=== PATIENT | female | born 1955 | race Caucasian/White ===

== ENCOUNTER 2016-12-12 19:31 | Emergency (ER) | payer MEDICAID ==
[~2016-12-12] VITALS: Ht 160 cm; Wt 55.0 kg
[~2016-12-12 19:31] MED LIST: ASPI-867 PO; ATOR20TA PO; METF10002 PO
[2016-12-13] MEDS ORDERED: ACETAMINOPHEN 500MG TABLET PO ONE (00:15)
[2016-12-13 01:07] VITALS: BP 132/67
== END 2016-12-13 01:10 | disposition home or self-care (01) ==
LOC: ER 19:31
DX: S46.912A Strain of unspecified muscle, fascia and tendon at shoulder and upper arm level, left arm, initial encounter (principal); S46.911A Strain of unspecified muscle, fascia and tendon at shoulder and upper arm level, right arm, initial encounter; S29.012A Strain of muscle and tendon of back wall of thorax, initial encounter; E11.9 Type 2 diabetes mellitus without complications; E78.00 Pure hypercholesterolemia, unspecified; Z79.82 Long term (current) use of aspirin; X58.XXXA Exposure to other specified factors, initial encounter; Y93.89 Activity, other specified; Y92.89 Other specified places as the place of occurrence of the external cause; Y99.8 Other external cause status
CPT/HCPCS: 99282